=== PATIENT | female | born 1980 | race Caucasian/White ===

== ENCOUNTER 2016-06-16 05:51 | Inpatient (IN) | payer BC ==
[2016-06-14 10:16] LABS: HEMATOCRIT 39.5 % (36.0-48.0)
[2016-06-14 10:29] LABS: BUN (BLOOD UREA NITROGEN) 12 MG/DL (6-23); CALCIUM, SERUM 9.3 MG/DL (8.5-10.4); CHLORIDE, SERUM 103 MMOL/L (96-112); CO2 (CARBON DIOXIDE) 29 MMOL/L (24-34); CREATININE 0.97 MG/DL (0.55-1.02); GFR AFRICAN AMERICAN 88 ML/MIN (>=60); GFR NON AFRICAN AMERICAN 76 ML/MIN (>=60); GLUCOSE, SERUM 100 MG/DL (60-99); POTASSIUM, SERUM 4.2 MMOL/L (3.5-5.3); SODIUM, SERUM 138 MMOL/L (135-148)
--- NOTE | ~2016-06-16 | DS ---
Discharge Summary [facility] [address] [place]. [address] NAME: PAM SILVA : 84 STATUS : DIS IN PAT#: [id number] AGE: 36 ADM/REG DATE : 06/16/16 MR#: [id number] REPORT SERV DATE: 06/28/16 DICTATED BY: BOGDAN MCKAY DATE: 06/28/16 REPORT STATUS : Draft TRANSCRIBED BY: KATIANA DATE: 06/28/16 Data Collection from hospitalization The patient was admitted on 06/16/2016, and discharged on 06/19/2016. DISCHARGE DIAGNOSES: 1. Large complex incarcerated ventral hernia. 2. Obesity. 3. Hypertension. 4. Former tobacco use. CONSULTATIONS: None. PROCEDURES PERFORMED: Open tension-free repair of incarcerated ventral hernia with underlay mesh, bilateral anterior component separation, 06/16/2016. PATHOLOGY: Soft tissue abdomen ventral hernia repair-hernia sac redundant skin-no histopathologic change. DISCHARGE MEDICATIONS: [place] 10/325 half-to-one tablet every six hours as needed. CONDITION ON DISCHARGE: Stable. DISPOSITION: The patient was discharged home on a regular diet with activities as instructed. She will follow up with me two weeks following discharge. HOSPITAL COURSE: This is a 36-year-old female who has a large incarcerated ventral hernia with a 7.[address] scan in 2012 with greater than 25 cm of incarcerated hernia sac. She had lost [address] scan and quit smoking. Her hypertension had resolved with weight loss. Treatment options were discussed and she elected to proceed with surgical intervention. She was admitted to the hospital at this time for further evaluation and treatment. Upon admission, she was taken to the operating room where she underwent the above-mentioned procedure. She tolerated this well and there were no complications. On postop day #1, she still had significant abdominal pain. She required BAG GRADER as expected. She had no other complaints. Her diet was going to be advanced. On the 6th her abdominal pain began to decrease. She was alert and cooperative. Discharge planning was performed on 06/19/2016. Discharge instructions were given due to her improved and stable condition. She was discharged home with the above-stated instructions. Information collected by: Amy Vasquez I submit the above information as my discharge summary. BALWINDER/KATIANA Discharge Summary [facility] [address] [place]. [address] NAME: PAM SILVA : 84 STATUS : DIS IN [facility]#: [id number] AGE: 36 ADM/REG DATE : 06/16/16 MR#: [id number] REPORT SERV DATE: 06/28/16 DICTATED BY: BOGDAN MCKAY DATE: 06/28/16 REPORT STATUS : Draft TRANSCRIBED BY: MODL DATE: 06/28/16 Bogdan Mckay M.D. / [id number] CC: Bogdan Mckay M.D.
--- NOTE | ~2016-06-16 | OP ---
Record Of Operation [facility] [address] [place]. [address] NAME: PAM SILVA : 84 STATUS : ADM IN PAT#: [id number] AGE: 36 ADM/REG DATE : 06/16/16 MR#: [id number] REPORT SERV DATE: 06/16/16 DICTATED BY: BOGDAN MCKAY DATE: 06/16/16 REPORT STATUS : Draft TRANSCRIBED BY: MODL DATE: 06/16/16 DATE OF PROCEDURE: 06/16/2016 PREOPERATIVE DIAGNOSES: 1. Large complex incarcerated ventral hernia. 2. Obesity. POSTOPERATIVE DIAGNOSES: 1. Large complex incarcerated ventral hernia. 2. Obesity. PROCEDURES: 1. Open tension-free repair of incarcerated ventral hernia with underlay mesh. 2. Bilateral anterior component separation. ANESTHESIA: General. SURGEON: Bogdan Mckay M.D. AIRCRAFT TECHNICIAN: Humberto. COMPLICATIONS: None. DRAINS: Two 19-mm drains in the subcutaneous tissues. ESTIMATED BLOOD LOSS: 100 mL. FINDINGS: The patient was noted to have a large ventral hernia that was incarcerated with 5 to 6 feet of small intestine and the entire transverse colon incarcerated within the defect. The hernia itself was approximately 10 cm in diameter. OPERATIVE TECHNIQUE: The patient was brought to the operating room and placed on the table in supine position. She had preoperative antibiotics. She had sequential hose in place. She voided prior to procedure. She underwent general endotracheal anesthesia and was prepped and draped in the sterile fashion and time-out was completed. A TAP block had been previously completed. A midline incision was made from below the xiphoid to the umbilicus. The dissection continued down to the level of the hernia sac. The hernia sac was 45 cm from one fascial edge across the entire defect back to the other fascial edge. It was circumferentially dissected until the entire hernia sac was dissected away from the flaps and the fascia was identified for approximately 6 cm circumferentially around the hernia. The hernia sac was then entered and carefully dissected circumferentially and divided. It was then excised off the underlying bowel. There were several areas of adhesions to the omentum and transverse colon, and these were excised and the entire sac was sent to pathology. The fascia was extended approximately 2 cm inferiorly to allow reduction of the small and large bowel and the omentum back into the abdomen. There was no evidence of any bleeding. The bowel was viable. At this point, the bilateral anterior component Record Of Operation [facility] [address] [facility] [place]. [address] NAME: PAM SILVA : 84 STATUS : ADM IN PAT#: [id number] AGE: 36 ADM/REG DATE : 06/16/16 MR#: [id number] REPORT SERV DATE: 06/16/16 DICTATED BY: BOGDAN MCKAY DATE: 06/16/16 REPORT STATUS : Draft TRANSCRIBED BY: KATIANA DATE: 06/16/16 separations were completed for approximately 3 to 4 inches bilaterally with linear incisions made over the rectus muscles to 4 cm off midline. This allowed the midline to come together after reduction. Next, the 6 x [address] mesh was placed in the underlay fashion, and it was secured with an ellipse and long fashion from the right to left lateral sides. The mesh was secured with full thickness 2-0 Prolene sutures circumferentially with a needle passer through the fascia. The sutures were placed circumferentially with no gaps around the entire mesh and then brought out with a suture passer through the anterior fascia with no exit tension on the mesh. The mesh was secured lateral to the fascia where it had been previously released on the rectus. The entire mesh was then secured to the anterior abdominal wall. There was no gut in between the mesh and care was taken not to involve any bowel between the mesh and anterior abdominal wall. The wound was then thoroughly irrigated. The anterior fascia was then reapproximated using a running 0 looped PDS suture without tension. Once again, the wound was thoroughly irrigated and two drains were placed and exited out the right and left lower quadrants and secured to the skin and placed to bulb suction upon wound closure. The deep subcutaneous tissues were then reapproximated using a running and interrupted 3-0 Vicryl sutures. The skin edges were reapproximated using rico. Aquacel Ag surgical dressing was placed on the incision. She tolerated the procedure well and was extubated and taken to the recovery room in stable condition. All sponge and needle counts reported correct. DONNELL/KATIANA Bogdan Mckay M.D. / [id number] CC: Bogdan Mckay M.D.
[2016-06-17 03:47] LABS: BASOPHILS 0.1 %; BASOPHILS ABSOLUTE 0.01 10/3/uL (0.0-0.16); EOSINOPHILS 0 %; HEMATOCRIT 35.6 % (36.0-48.0); HEMOGLOBIN 11.5 g/dL (12.0-16.0); IMMATURE GRANULOCYTES 0.3 %; IMMATURE GRANULOCYTES ABSOLUTE 0.06 10/3/uL (0.0-0.11); LYMPHOCYTES 10.3 %; LYMPHOCYTES ABSOLUTE 1.77 10/3/uL (0.67-4.30); MEAN CORPUS HGB CONC 32.3 g/dL (32.0-36.0); MEAN CORPUSCULAR HEMOGLOB 28.8 pg (26.0-34.0); MEAN CORPUSCULAR VOLUME 89.2 fL (80-100); MEAN PLATELET VOLUME 11.2 fL (9.2-13.0); MONOCYTES 6.5 %; MONOCYTES ABSOLUTE 1.12 10/3/uL (0.21-1.20); NEUTROPHILS 82.8 %; NEUTROPHILS ABSOLUTE 14.29 10/3/uL (2.02-8.40); PLATELET COUNT 275 10/3/uL (150-400); RBC DISTRIBUTION WIDTH 13.2 % (12.0-16.0); RED CELL COUNT 3.99 10/6/uL (4.0-5.6); WHITE BLOOD CELLS 17.3 10/3/uL (4.5-10.5)
[2016-06-17 03:48] LABS: MANUAL DIFF NO %
[2016-06-17 04:02] LABS: BUN (BLOOD UREA NITROGEN) 11 MG/DL (6-23); CALCIUM, SERUM 8.5 MG/DL (8.5-10.4); CHLORIDE, SERUM 107 MMOL/L (96-112); CO2 (CARBON DIOXIDE) 25 MMOL/L (24-34); CREATININE 1.05 MG/DL (0.55-1.02); GFR AFRICAN AMERICAN 80 ML/MIN (>=60); GFR NON AFRICAN AMERICAN 69 ML/MIN (>=60); POTASSIUM, SERUM 4.3 MMOL/L (3.5-5.3); SODIUM, SERUM 139 MMOL/L (135-148)
[2016-06-17 04:03] LABS: GLUCOSE, SERUM 129 MG/DL (60-99)
[2016-06-18 06:40] LABS: BASOPHILS 0.2 %; BASOPHILS ABSOLUTE 0.02 10/3/uL (0.0-0.16); EOSINOPHILS 0.3 %; EOSINOPHILS ABSOLUTE 0.04 10/3/uL (0.0-0.53); HEMATOCRIT 34.2 % (36.0-48.0); HEMOGLOBIN 11.3 g/dL (12.0-16.0); IMMATURE GRANULOCYTES 0.4 %; IMMATURE GRANULOCYTES ABSOLUTE 0.05 10/3/uL (0.0-0.11); LYMPHOCYTES 25.2 %; LYMPHOCYTES ABSOLUTE 3.07 10/3/uL (0.67-4.30); MEAN CORPUSCULAR HEMOGLOB 29.7 pg (26.0-34.0); MEAN PLATELET VOLUME 11.4 fL (9.2-13.0); MONOCYTES 6.6 %; NEUTROPHILS 67.3 %; NEUTROPHILS ABSOLUTE 8.22 10/3/uL (2.02-8.40); PLATELET COUNT 249 10/3/uL (150-400); RBC DISTRIBUTION WIDTH 13.4 % (12.0-16.0); WHITE BLOOD CELLS 12.2 10/3/uL (4.5-10.5)
[2016-06-18 06:41] LABS: MANUAL DIFF NO %
[2016-06-18 06:51] LABS: BUN (BLOOD UREA NITROGEN) 9 MG/DL (6-23); CALCIUM, SERUM 8.6 MG/DL (8.5-10.4); CHLORIDE, SERUM 106 MMOL/L (96-112); CO2 (CARBON DIOXIDE) 27 MMOL/L (24-34); CREATININE 0.72 MG/DL (0.55-1.02); GFR AFRICAN AMERICAN 127 ML/MIN (>=60); GFR NON AFRICAN AMERICAN 109 ML/MIN (>=60); GLUCOSE, SERUM 104 MG/DL (60-99); POTASSIUM, SERUM 3.8 MMOL/L (3.5-5.3); SODIUM, SERUM 140 MMOL/L (135-148)
[2016-06-19 06:58] LABS: BASOPHILS 0.2 %; BASOPHILS ABSOLUTE 0.02 10/3/uL (0.0-0.16); EOSINOPHILS 0.9 %; HEMATOCRIT 35.4 % (36.0-48.0); HEMOGLOBIN 11.6 g/dL (12.0-16.0); IMMATURE GRANULOCYTES 0.3 %; IMMATURE GRANULOCYTES ABSOLUTE 0.03 10/3/uL (0.0-0.11); LYMPHOCYTES 24.8 %; MEAN CORPUS HGB CONC 32.8 g/dL (32.0-36.0); MEAN CORPUSCULAR HEMOGLOB 29.5 pg (26.0-34.0); MEAN CORPUSCULAR VOLUME 90.1 fL (80-100); MEAN PLATELET VOLUME 11.4 fL (9.2-13.0); MONOCYTES ABSOLUTE 0.65 10/3/uL (0.21-1.20); NEUTROPHILS 67.8 %; NEUTROPHILS ABSOLUTE 7.37 10/3/uL (2.02-8.40); PLATELET COUNT 239 10/3/uL (150-400); RBC DISTRIBUTION WIDTH 12.9 % (12.0-16.0); RED CELL COUNT 3.93 10/6/uL (4.0-5.6); WHITE BLOOD CELLS 10.9 10/3/uL (4.5-10.5)
[2016-06-19 07:00] LABS: MANUAL DIFF NO %
[2016-06-19 07:11] LABS: BUN (BLOOD UREA NITROGEN) 8 MG/DL (6-23); CALCIUM, SERUM 8.7 MG/DL (8.5-10.4); CHLORIDE, SERUM 106 MMOL/L (96-112); CO2 (CARBON DIOXIDE) 27 MMOL/L (24-34); CREATININE 0.74 MG/DL (0.55-1.02); GFR AFRICAN AMERICAN 123 ML/MIN (>=60); GFR NON AFRICAN AMERICAN 106 ML/MIN (>=60); GLUCOSE, SERUM 85 MG/DL (60-99); POTASSIUM, SERUM 3.9 MMOL/L (3.5-5.3); SODIUM, SERUM 140 MMOL/L (135-148)
[2016-06-19] MEDS ORDERED: NORCO1 TAB PO (12:27)
[2016-06-19] MEDS ORDERED: NORCO1 TAB (12:28)
== END 2016-06-19 14:05 | disposition home or self-care (01) | DRG 355 ==
LOC: SDC/OF 05:51 → PACU 12:39 → 5SO 13:41
PROVIDERS: Surgery
PROC: 0WUF0JZ Supplement Abdominal Wall with Synthetic Substitute, Open Approach (ICD-10-PCS; principal; 2016-06-16 07:45)
DX: K43.6 Other and unspecified ventral hernia with obstruction, without gangrene (principal); E66.01 Morbid (severe) obesity due to excess calories; I10 Essential (primary) hypertension; Z87.891 Personal history of nicotine dependence; Z80.8 Family history of malignant neoplasm of other organs or systems; Z82.49 Family history of ischemic heart disease and other diseases of the circulatory system; Z68.38 Body mass index [BMI] 38.0-38.9, adult
CPT/HCPCS: 80048; 84703; 85014; 85018; 85025; 87641; 88302; 88305; 93005; A9270-GY; C1781; J0690; J2250; J2405; J2710; J2795; J3010